=== PATIENT | female | born 1960 | race Caucasian/White ===

== ENCOUNTER 2017-06-10 10:58 | Emergency (ER) | payer OTHER ==
[2017-06-10 11:04] VITALS: TEMP 98.1
--- NOTE | 2017-06-10 11:12 | EDPHY ---
H & P Stated Complaint: n/v/d Time Seen by Provider: 06/10/17 11:12 - Personal History Current Tetanus/Diphtheria Vaccine: Yes - Medical/Surgical History Hx Asthma: No Hx Chronic Respiratory Disease: No Hx Diabetes: No Hx Cardiac Disease: No Hx Renal Disease: No Hx Cirrhosis: No Hx Alcoholism: No Hx HIV/AIDS: No Hx Splenectomy or Spleen Trauma: No Other PMH: throid cancer - Social History Smoking Status: Never smoked Constitutional: Initial Vital Signs Temperature (C) 36.7 C 06/10/17 11:02 Heart Rate 84 06/10/17 11:02 Respiratory Rate 18 06/10/17 11:02 Blood Pressure 113/83 H 06/10/17 11:02 O2 Sat (%) 99 06/10/17 11:02 O2 Delivery Mode Room Air Allergies/Adverse Reactions: No Known Allergies Allergy (Unverified 06/10/17 11:00) Home Medications: Medication Instructions Recorded Hrt Essential Cream 06/10/17 Synthroid 06/10/17 Medical Decision Making ED Course/Re-evaluation: CHIEF COMPLAINT: Nausea vomiting diarrhea HISTORY OF PRESENT ILLNESS: 57-year-old [place]. She developed nausea vomiting diarrhea over the last several hours. She feels dehydrated. She has intermittent sharp stabbing cramps at a resolve with both vomiting and diarrhea. Abdominal pain is not a primary reason that she came here it has to do with the dehydration nausea vomiting diarrhea. She denies any significant medical illness. She takes hormone replacement. She takes Synthroid. REVIEW OF SYSTEMS: A 10 point review of systems was performed and is negative with the exception of the elements mentioned in the history of present illness. PHYSICAL EXAM: HR, BP, O2 Sat, RR. Temp noted General Appearance: Alert, well hydrated, appropriate, and non-toxic appearing. Head: Atraumatic without scalp tenderness or obvious injury Eyes: Pupils equal, round, reactive to light and accommodation, EOMI, no trauma , no injection. Ears: Clear bilaterally, no perforation, normal landmarks Nose: Atraumatic, no rhinorrhea, clear. Throat: There is no erythema or exudates, no lesions, normal tonsils, mucus membranes moist. Neck: Supple, 2+ carotid upstroke, nontender, no lymphadenopathy. Respiratory: No retractions, no distress, no wheezes, and no accessory muscle use. Lungs are clear to auscultation bilaterally. Cardiovascular: Regular rate and rhythm, no murmurs, rubs, or gallops. Bilateral carotid, radial, dorsalis pedis, and posterior tibial pulses intact. Good capillary refill all extremities. Gastrointestinal: Abdomen is soft, nontender, non-distended, no masses, no rebound, no guarding, no peritoneal signs. Benign abdomen Musculoskeletal: Normal active ROM of all extremities, atraumatic. Neurological: Alert, appropriate, and interactive. The patient has normal DTRs and non-focal cranial nerves, motor, sensory, and cerebellar exam. Skin: No rashes, good turgor, no nodules on palpation. Past medical history: Menopausal, hypothyroidism Past surgical history: Noncontributory Family history: Noncontributory Social history: Lives in [place], visiting from out of state, denies abuse of tobacco drugs or alcohol, employed DIFFERENTIAL DIAGNOSIS: The differential diagnosis for the patient's nausea and vomiting included but was not limited to gastroenteritis, gastritis, appendicitis, and medication side effect. MEDICAL DECISION MAKING: This patient is slightly dehydrated clinically. She has a benign abdominal exam. We will give her IV fluids and Zofran. She most likely has a viral gastroenteritis as several people in the community have been presenting with similar illness. In addition she certainly could have food poisoning of some sort. I do not believe she has any surgical or catastrophic abdominal process. This patient is taking p. o. well and feels much better I will discharge her with Zofran. - Data Points Laboratory Results: Laboratory Results 06/10/17 11:22 06/10/17 11:22 06/10/17 06/10/17 11:22 11:22 WBC 12.26 10^3/uL H 10^3/uL (3.80-9.50) RBC 4.59 10^6/uL 10^6/uL (4.18-5.33) Hgb 15.0 g/dL g/dL (12.6-16.3) Hct 42.8 % % (38.0-47.0) MCV 93.2 fL fL (81.5-99.8) MCH 32.7 pg pg (27.9-34.1) MCHC 35.0 g/dL g/dL (32.4-36.7) RDW 12.7 % % (11.5-15.2) Plt Count 262 10^3/uL 10^3/uL (150-400) MPV 9.3 fL fL (8.7-11.7) Neut % (Auto) 92.4 % H % (39.3-74.2) Lymph % (Auto) 4.2 % L % (15.0-45.0) [place] % (Auto) 2.4 % L % (4.5-13.0) Eos % (Auto) 0.3 % L % (0.6-7.6) Baso % (Auto) 0.3 % % (0.3-1.7) Nucleat RBC Rel Count 0.0 % % (0.0-0.2) Absolute Neuts (auto) 11.31 10^3/uL H 10^3/uL (1.70-6.50) Absolute Lymphs (auto) 0.52 10^3/uL L 10^3/uL (1.00-3.00) Absolute Monos (auto) 0.30 10^3/uL 10^3/uL (0.30-0.80) Absolute Eos (auto) 0.04 10^3/uL 10^3/uL (0.03-0.40) Absolute Basos (auto) 0.04 10^3/uL 10^3/uL (0.02-0.10) Absolute Nucleated RBC 0.00 10^3/uL 10^3/uL (0-0.01) Immature Gran % 0.4 % % (0.0-1.1) Immature Gran # 0.05 10^3/uL 10^3/uL (0.00-0.10) Sodium 144 mEq/L mEq/L (134-144) Potassium 3.4 mEq/L L mEq/L (3.5-5.2) Chloride 107 mEq/L mEq/L (97-110) Carbon Dioxide 25 mEq/l mEq/l (22-31) Anion Gap 12 mEq/L mEq/L (8-16) BUN 14 mg/dL mg/dL (7-23) Creatinine 0.6 mg/dL mg/dL (0.6-1.0) Estimated GFR > 60 Glucose 118 mg/dL H mg/dL (70-100) Calcium 8.7 mg/dL mg/dL (8.5-10.4) Total Bilirubin 1.0 mg/dL mg/dL (0.1-1.4) Conjugated Bilirubin 0.1 mg/dL mg/dL (0.0-0.5) Unconjugated Bilirubin 0.9 mg/dL mg/dL (0.0-1.1) AST 22 IU/L IU/L (14-46) ALT 34 IU/L IU/L (9-52) Alkaline Phosphatase 62 IU/L IU/L (38-126) Total Protein 6.6 g/dL g/dL (6.3-8.2) Albumin 4.3 g/dL g/dL (3.5-5.0) Lipase 120 IU/L IU/L (23-300) Medications Given: Discontinued Medications Hydromorphone HCl (Dilaudid) 0.5 mg IVP EDNOW ONE Stop: 06/10/17 11:28 Last Admin: 06/10/17 11:33 Dose: 0.5 mg Sodium Chloride (Ns) 1,000 mls @ 0 mls/hr IV EDNOW ONE; Wide Open PRN Reason: Protocol Stop: 06/10/17 11:28 Last Admin: 06/10/17 11:34 Dose: 1,000 mls Sodium Chloride (Ns) 1,000 mls @ 0 mls/hr IV EDNOW ONE; Wide Open PRN Reason: Protocol Stop: 06/10/17 11:28 Last Admin: 06/10/17 11:34 Dose: 1,000 mls Ketorolac Tromethamine (Toradol) 30 mg IVP EDNOW ONE Stop: 06/10/17 11:28 Last Admin: 06/10/17 11:33 Dose: 30 mg Ondansetron HCl (Zofran) 4 mg IVP EDNOW ONE Stop: 06/10/17 11:28 Last Admin: 06/10/17 11:33 Dose: 4 mg Departure - Departure Disposition: Home, Routine, Self-Care Clinical Impression: Acute gastroenteritis, Dehydration Condition: Good Instructions: Dehydration (ED), Gastroenteritis (ED) Referrals: JASON OZUNA MD [Other] - As per Instructions
[2017-06-10] MEDS ORDERED: NS 1,000 ML IV ONE ×2 (11:27)
[2017-06-10] MEDS ORDERED: HYDROmorphONE/DILAUDID 1 MG/ML INJ IVP ONE (11:27)
[2017-06-10] MEDS ORDERED: KETOROLAC 30 MG/1 ML SDV IVP ONE (11:27)
[2017-06-10 11:31] LABS: % IMMATURE GRANULYOCYTES 0.4 % (0.0-1.1); ABSOLUTE IMMATURE GRANULOCYTES 0.05 10^3/uL (0.00-0.10); ADD DIFF? NO; ADD MORPH? NO; ADD SCAN? NO; ATYPICAL LYMPHOCYTE FLAG 0 (0-99); FRAGMENT RBC FLAG 0 (0-99); HEMATOCRIT 42.8 % (38.0-47.0); LEFT SHIFT FLG 0 (0-99); LIPEMIA HEMOLYSIS FLAG 90 (0-99); MEAN CELL HEMOGLOBIN 32.7 pg (27.9-34.1); MEAN CELL VOLUME 93.2 fL (81.5-99.8); MEAN PLATELET VOLUME 9.3 fL (8.7-11.7); PLATELET CLUMPS FLAG 10 (0-99); PLATELET COUNT 262 10^3/uL (150-400); RED BLOOD CELL COUNT 4.59 10^6/uL (4.18-5.33); RED CELL DISTRIBUTION WIDTH 12.7 % (11.5-15.2)
[2017-06-10] MEDS: ONDANSETRON 4 MG/2 ML VIAL IVP ONE (11:33)
[2017-06-10 11:43] LABS: ALANINE AMINOTRANSFERASE 34 IU/L (9-52); ALBUMIN 4.3 g/dL (3.5-5.0); ALKALINE PHOSPHATASE 62 IU/L (38-126); ANION GAP 12 mEq/L (8-16); ASPARTATE AMINOTRANSFERASE 22 IU/L (14-46); BILIRUBIN-CONJUGATED 0.1 mg/dL (0.0-0.5); BILIRUBIN-UNCONJUGATED 0.9 mg/dL (0.0-1.1); CALCIUM 8.7 mg/dL (8.5-10.4); CARBON DIOXIDE 25 mEq/l (22-31); CHLORIDE 107 mEq/L (97-110); CREATININE 0.6 mg/dL (0.6-1.0); GLOMERULAR FILTRATION RATE > 60; GLUCOSE 118 mg/dL (70-100); POTASSIUM 3.4 mEq/L (3.5-5.2); SODIUM 144 mEq/L (134-144); TOTAL PROTEIN 6.6 g/dL (6.3-8.2)
[2017-06-10 13:19] VITALS: BP 120/70; PULSE 80; RESP 14
[2017-06-10 13:20] VITALS: O2SAT 98
== END 2017-06-10 13:32 | disposition home or self-care (01) ==
DX: K52.9 Noninfective gastroenteritis and colitis, unspecified (principal); E86.0 Dehydration; E86.9 Volume depletion, unspecified
CPT/HCPCS: 96374; J1170; J1885; J2405